=== PATIENT | female | born 1935 | race Caucasian/White ===

== ENCOUNTER → 2018-01-22 | Outpatient (CLI) | payer OTHER ==
[~2018-01-22] MED LIST: ACETAMINOPHEN325 M1 PO; ASPIRIN EC81 M1 PO; ASPIRIN PO; CALCIUM 600 +1 EAC7 PO; CALCIUM PO; CEFDINIR300 MG PO; CLONIDINE HCL0.2 M2 PO; CLONIDINE HCL0.3 M2 PO; COLACE100 MG PO; Calcium PO; DIOVAN40 MG PO; DUONEB 2.5-0.5 M3 ML; DUONEB 2.5-0.5 M3 ML INH; FISH OIL PO; Fish Oil PO; LEVAQUIN 500 M500 M2 PO; MUCINEX; MUCINEX600 MG PO; MULTI VITAMIN1 EACH PO; POTASSIUM20 OR; PREDNISONE 10 M10 M1; PREDNISONE 10 M10 M1 PO; PREDNISONE 20 M20 MG PO; PRILOSEC 20 MG20 MG PO; PROBIOTIC1 EAC1 PO; PROBIOTICS; RED YEAST RICE600 MG PO; SIMVASTATIN5 MG PO; SIMVASTATIN80 MG PO; SINGULAIR; SINGULAIR 10 MG10 M1 PO; SINGULAIR 10 MG10 MG PO; SYMBICORT160 MCG/4. INH; TYLENOL325 MG PO; VALSARTAN-HCTZ1 EACH PO; VENTOLIN HFA INH8 GM INH; VENTOLIN INH; VITAMIN B COMP1 EACH PO; VITAMIN D; VITAMIN D1000 UNI1 PO; VITAMIN D32000 UNIT PO; XANAX 0.25 MG0.25 MG PO; ZOFRAN ODT4 MG PO
== END ==
LOC: M.ULTRA 15:26
DX: G45.9 Transient cerebral ischemic attack, unspecified (principal)

== ENCOUNTER → 2018-02-09 | Outpatient (CLI) | payer OTHER | LOC: M.ULTRA 12:38 | DX: I73.9 Peripheral vascular disease, unspecified (principal); I70.90 Unspecified atherosclerosis; M79.605 Pain in left leg; M79.604 Pain in right leg ==

== ENCOUNTER 2018-06-28 16:09 | Inpatient (IN) | payer OTHER ==
[~2018-06-28] VITALS: Ht 160 cm; Wt 68.0 kg
[~2018-06-28 16:09] MED LIST changes: -CEFDINIR300 MG PO; -PREDNISONE 20 M20 MG PO; -RED YEAST RICE600 MG PO; -TYLENOL325 MG PO; -XANAX 0.25 MG0.25 MG PO
[2018-06-28 16:13] VITALS: BP 172/74; BP 238/89
[2018-06-28 16:34] LABS: ABSOLUTE LYMPHOCYTES 1.4 thou/uL (0.8-5.3); ABSOLUTE MONOCYTES 1.2 thou/uL (0.0-1.2); ABSOLUTE NEUTROPHILS 9.1 thou/uL (1.6-8.1); BASOPHILS 0.3 %; EOSINOPHILS 0.3 %; HEMATOCRIT 46.1 % (37.0-47.0); HEMOGLOBIN 15.6 gm/dL (12.0-15.0); LYMPHOCYTES 11.7 %; MCH 29.9 pg (26.0-34.0); MCHC 33.8 g/dL (28.0-37.0); MCV 88.4 fL (80.0-100.0); MONOCYTES 9.9 %; NUCLEATED RBCS 0 /100WBC; PLATELET COUNT* 178 thou/uL (150-400); POLYS 77.8 %; RBC 5.22 mil/uL (4.20-5.00); RDW-CV 13.6 % (10.5-14.5); WBC 11.7 thou/uL (4.0-11.0)
[2018-06-28 16:44] LABS: ANION GAP 2 mmol/L (7-16); BUN 15 mg/dL (7-18); CALCIUM 9.4 mg/dL (8.5-10.1); CHLORIDE 100 mmol/L (98-107); CO2 35 mmol/L (21-32); CREATININE 0.9 mg/dL (0.6-1.3); GLUCOSE 139 mg/dL (70-99); POTASSIUM 3.4 mmol/L (3.5-5.1); SODIUM 137 mmol/L (136-145)
[2018-06-28 16:55] LABS: ALBUMIN 3.5 g/dL (3.4-5.0); ALKALINE PHOSPHATASE 72 U/L (46-116); LIPASE 108 U/L (73-393); MAGNESIUM 1.5 mg/dL (1.8-2.4); NT-PRO BRAIN NAT PEPTIDE 115 pg/mL (<300); SGOT 31 U/L (15-37); SGPT 29 U/L (30-65); TOTAL BILIRUBIN 0.7 mg/dL (<0.1-1.0); TOTAL PROTEIN 7.2 g/dL (6.4-8.2); TROPONIN-I LEVEL <0.06 ng/mL (<0.06)
[2018-06-28] MEDS ORDERED: RED YEAST RICE600 MG PO (17:08)
[2018-06-28] MEDS ORDERED: XANAX 0.25 MG0.25 MG PO (17:08)
[2018-06-28 18:26] VITALS: BP 134/50
[2018-06-28 18:43] VITALS: BP 150/64
--- NOTE | 2018-06-28 18:56 | NUR ---
RECIEVED REPORT FROM ARVIN RN IN ER AROUND 1817 OF EXPECTED TRANSFER- DX: PNEUMONIA- PT ARRIVED TO ROOM 213 AT 1830- SBA TO BED- TIMBER APPRAISER PLACED INDICATED, NOTED TO BE TRACING SR WITH 1ST DEGREE- VS 98.5 20 150/64 93 95% ON 2L VIA NC- DYSPNEA NOTED ON EXERTION- PT SET WITH CALL LIGHT WITH IN REACH- DENIES ANY C/O PAIN/DISCOMFORT AT THIS TIME- REPORT GIVEN TO ON COMMING NURSE TO ASSUME CARE AND COMPLETE ADMISSION- ALL NEEDS MET AT THIS TIME-WCTM
[2018-06-28 20:30] VITALS: BP 120/48
[2018-06-29] VITALS: BP 136/66
[2018-06-29 05:45] VITALS: BP 168/68
[2018-06-29] MEDS ORDERED: TYLENOL325 MG PO (06:14)
--- NOTE | 2018-06-29 06:50 | NUR ---
Admission at 1830. She states that she's been having L breast and rib pain x 2 days and that it increased which and brought her the ED. By the time I did her assessment she stated the pain had decreased and that she did feel short of air. Her lungs were clear on upper lobes and very diminished as in hardly any air moving in lower lobes. She was admitted with pneumonia and is getting breathing treatments. Vitals have been stable and she's done well with O2 at 2L n/c. This am she did walk to the bathroom without O2 and that was not a good idea. She did get very short of air and have wheezing. I did turn down her IV fluids. Lungs do not sound fluid filled but they are wheezy and lower lobes have fine crackles. She was very anxious after getting to bed from bathroom. AM xanax given early at 0600 and now she is resting well in with O2 at 2L n/c. Home meds in chart awaiting approval from [facility]. She did sleep well.
[2018-06-29 09:00] VITALS: BP 140/64
[2018-06-29 11:30] VITALS: BP 133/59
--- NOTE | 2018-06-29 14:35 | EKG ---
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 06/29/18 1435 1616 1616 Randy Lyons MD, [facility] /EPI
--- NOTE | 2018-06-29 16:04 | 2DMMODE ---
[place] [address] 2 D/M-MODE ECHOCARDIOGRAM Name: WALI SOLORZANO Room: [address] IN [facility]#: [id number] Admission: 06/28/18 Attend Phys: Hossein Moctezuma Discharge: Date of : 39 Date of Service: 06/29/18 1604 Report #: [id number] THIS REPORT FOR: //name// APPROVED REPORT Study performed: 06/29/2018 14:39:10 EXAM: Comprehensive 2D, Doppler, and color-flow Echocardiogram Patient Location: In-Patient Room #: [facility] Status: routine BSA: 1.71 HR: 100 bpm BP: 133/59 mmHg Rhythm: NSR Other Information Study Quality: Good Indications Dyspnea pneumonia 2D Dimensions LVEF(%): 80.65 (>50%) IVSd: 8.50 (7-11mm) LVOT Diam: 19.76 (18-24mm) LVDd: 43.59 mm PWd: 8.89 (7-11mm) Ascending Ao: 27.99 (22-36mm) LVDs: 22.21 (25-40mm) Aortic Root: 28.64 mm Myers's LVEF: 80.65 % Volumes Left Atrial Volume (Systole) LA ESV Index: 22.70 mL/m2 Aortic Valve AoV Peak Dick.: 2.58 m/s AO Peak Gr.: 26.69 mmHg LVOT Max P.31 mmHg AO Mean Gr.: 14.30 mmHg LVOT Mean P.48 mmHg LVOT Max V: 1.53 m/s AO V2 VTI: 45.18 cm LVOT Mean V: 0.97 m/s OLIVER (VTI): 1.85 cm2 LVOT V1 VTI: 27.24 [place] [address] 2 D/M-MODE ECHOCARDIOGRAM Name: WALI SOLORZANO Room: [address] IN ..#: [id number] Admission: 06/28/18 Attend Phys: Hossein Moctezuma Discharge: Date of : 39 Date of Service: 06/29/18 1604 Report #: [id number] E/A Ratio: 0.73 MV Decel. Time: 176.12 ms MV E Max Dick.: 1.19 m/s MV PHT: 51.07 ms MVA (PHT): 4.31 cm2 TDI E/Lateral E': 11.90 E/Medial E': 9.92 Medial E' Dick.: 0.12 m/s Lateral E' Dcik.: 0.10 m/s Pulmonary Valve PV Peak Dick.: 1.27 m/s PV Peak Gr.: 6.46 mmHg Left Ventricle The left ventricle is normal size. There is normal LV segmental wall motion. There is normal left ventricular wall thickness. Left ventricular systolic function is normal. The left ventricular ejection fraction is within the normal range. LVEF is 65%. Grade I - abnormal relaxation pattern. Right Ventricle The right ventricle is normal size. The right ventricular systolic function is normal. Atria The left atrium size is normal. The right atrium size is normal. Aortic Valve Moderate aortic valve sclerosis. No aortic regurgitation is present. Mild aortic stenosis. Mitral Valve There is mitral annular calcification. There is no mitral valve regurgitation noted. No evidence of mitral valve stenosis. Tricuspid Valve The tricuspid valve is normal in structure. Trace tricuspid regurgitation. Unable to assess PA pressure. Pulmonic Valve The pulmonary valve is normal in structure. There is no pulmonic valvular regurgitation[place] [address] 2 D/M-MODE ECHOCARDIOGRAM Name: WALI SOLORZANO Room: [address] IN [facility]#: [id number] Admission: 06/28/18 Attend Phys: Hossein Moctezuma Discharge: Date of : 39 Date of Service: 06/29/18 1604 Report #: [id number] The aortic root is normal in size. IVC is normal in size and collapses with >50% inspiration Pericardium There is no pericardial effusion. <Conclusion> The left ventricle is normal size. There is normal left ventricular wall thickness. Left ventricular systolic function is normal. The left ventricular ejection fraction is within the normal range. LVEF is 65%. Grade I - abnormal relaxation pattern. The right ventricle is normal size. The left atrium size is normal. Moderate aortic valve sclerosis. No aortic regurgitation is present. Mild aortic stenosis. There is mitral annular calcification. There is no mitral valve regurgitation noted. No evidence of mitral valve stenosis. The tricuspid valve is normal in structure. IVC is normal in size and collapses with >50% inspiration There is no pericardial effusion. There is normal LV segmental wall motion. <ELECTRONICALLY SIGNED> By: Randy Lyons MD, [facility]ACC 06/29/18 1604 1604 1604 Randy Lyons MD, [facility]ACC /INF
--- NOTE | 2018-06-29 16:32 | NUR ---
PATIENT NPO THIS AM FOR CTA CHEST THIS AFTERNOON, NEGATIVE FOR PE. US STEPHEN LOWER EXTREMITIES NEGATIVE FOR DVT. IV SL THIS SHIFT AFTER SCHED ABX. PULM CONS, SWABS OBTAINED ORDERED AND AWAITING SPUTUM FOR CULTURE. PATIENT UP AND SHOWERED THIS EVENING. FRIENDS AT BEDSIDE ALL MORNING. POTASSIUM AND MAG REPLACED PER PROTOCOL, REDRAW THIS EVENING AWAITING RESULTS.
[2018-06-29 16:35] VITALS: BP 178/82
[2018-06-29 16:47] LABS: MAGNESIUM 1.7 mg/dL (1.8-2.4); POTASSIUM 3.6 mmol/L (3.5-5.1)
--- NOTE | 2018-06-29 17:01 | NUR ---
PT.WAS ALERT AND ORIENTED. STATED SHE LIVES ALONE BUT HER FAMILY IS SUPPORTIVE. SHE HAS O2 THROUGH [facility] BUT ONLY USUALLY USES AT NIGHT. SHE IS NORMALLY INDEPENDENT AT HOME. 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 NO HX OF DME OR SNF. SAID SHE HAS NO TROUBLE PAYING FOR HER MEDICATIONS. CM TO BE AVAILABLE FOR ANY DISCHARGE NEEDS.
[2018-06-29 20:00] VITALS: BP 130/62
[2018-06-30 00:48] VITALS: BP 151/60
[2018-06-30 04:39] LABS: HEMATOCRIT 40.6 % (37.0-47.0); HEMOGLOBIN 13.8 gm/dL (12.0-15.0); MCV 88.3 fL (80.0-100.0); MPV 9.6 fl. (7.2-11.1); NUCLEATED RBCS 0 /100WBC; PLATELET COUNT* 156 thou/uL (150-400); RDW-CV 13.6 % (10.5-14.5); WBC 9.2 thou/uL (4.0-11.0)
[2018-06-30 04:52] VITALS: BP 139/59
[2018-06-30 05:42] LABS: ALBUMIN 2.9 g/dL (3.4-5.0); CALCIUM 8.8 mg/dL (8.5-10.1); CREATININE 0.8 mg/dL (0.6-1.3); MAGNESIUM 2.2 mg/dL (1.8-2.4); POTASSIUM 3.8 mmol/L (3.5-5.1); TOTAL BILIRUBIN 0.2 mg/dL (<0.1-1.0); TOTAL PROTEIN 5.9 g/dL (6.4-8.2)
[2018-06-30 06:25] LABS: ABSOLUTE LYMPHOCYTES 0.3 thou/uL (0.8-5.3); ABSOLUTE MONOCYTES 0.1 thou/uL (0.0-1.2); ABSOLUTE NEUTROPHILS 8.8 thou/uL (1.6-8.1); METAMYELOCYTES 1 %; PLATELET ESTIMATE ADEQUATE
[2018-06-30 09:11] VITALS: BP 133/61
[2018-06-30 16:08] VITALS: BP 133/64
--- NOTE | 2018-06-30 17:53 | NUR ---
PT IS ADMITTED WITH PNEUMONIA. PT WAS 91% SPO2 THIS AM, O2 INCREASED TO 3 LITERS BY NC. PT SPO2 INCREASED TO 95%. PT IS SCHEDULED FOR US OF ABD DUE TO CT SCAN SHOWING NODULAR GALLBLADDER. PT WILL BE NPO AFTER MIDNIGHT. CALL LIGHT IN REACH AND BED ALARM ON. WILL CONTINUE TO MONITOR.
--- NOTE | 2018-06-30 18:05 | NUR ---
NURSING DOCUMENTATION BY HANH Venegas RN REVIEWED
[2018-06-30 20:00] VITALS: BP 161/77
[2018-06-30 23:37] VITALS: BP 142/78
[2018-07-01 03:47] VITALS: BP 145/49
--- NOTE | 2018-07-01 04:46 | NUR ---
PATIENT ASSISTED TO RECLINER AT BEGINNING OF SHIFT. PT TEARFUL AND APPEARED TO BE DEPRESSED(?). ASKED PT IF EVERYTHING WAS OK. PT DENIES THAT ANYTHING WAS WRONG. PT LATER CALLED FOR ASSISTANCE BACK TO BED. PT ON O2 @ 3 LITERS PER NASAL CANNULA. PT ABLE TO AMBULATE FROM CHAIR TO BATHROOM AND BACK TO BED WITH ONLY STANDBY. PT'S BLOOD PRESSURE 161/77 WHEN B/P MEDS WERE GIVEN. RECHECKED LATER IN THE SHIFT AND FOUND TO BE WNL. PT CONTINUES TO BE TEARFUL AND SAD THIS MORNING BUT DENIES ANYTHING IS WRONG. PT HAS BEEN NPO SINCE MIDNIGHT FOR ABDOMINAL U/S. FREQUENTLY USED ITEMS AND CALL LIGHT WITHIN REACH. SIDERAILS UPX2. PT REMAINS IN DROPLET ISOLATION. WILL CONTINUE TO MONITOR.
[2018-07-01 05:07] LABS: HEMATOCRIT 39.6 % (37.0-47.0); MCH 29.3 pg (26.0-34.0); MCV 88.8 fL (80.0-100.0); RBC 4.45 mil/uL (4.20-5.00); RDW-CV 13.6 % (10.5-14.5); WBC 13.9 thou/uL (4.0-11.0)
[2018-07-01 05:10] LABS: CALCIUM 8.5 mg/dL (8.5-10.1); CREATININE 0.8 mg/dL (0.6-1.3); MAGNESIUM 2.1 mg/dL (1.8-2.4); POTASSIUM 4.6 mmol/L (3.5-5.1)
[2018-07-01 08:27] VITALS: BP 161/68
[2018-07-01 11:46] VITALS: BP 176/78
[2018-07-01 15:41] VITALS: BP 162/78
--- NOTE | 2018-07-01 16:44 | NUR ---
PT IS ALERT AND ORIENTED. PT HAD C/O HEADAHCE-ACETAMINOPHEN ORDERED AND GIVEN. PT IS ON 3 LITERS BY NASAL CANNULA. PT IS COUGHING WELL WITH SPUTUM-NOT OBSERVED SPUTUM. PT HAD CXR COMPLETED-SHOWED INCREASE INB LOWER LOBE INFILTRATES. CXR ORDERED FOR 07/02/18. US COMPLETED OF GALLBLADDER-NOT WELL VISUALIZED. PT HAD ABX INFUSED ORDERED. PT IV CAME OUT, NEW IV IN RIGHT FOREARM. SOLUMEDROL GIVEN ORDERED. CALL LIGHT IN REACH. BED ALARM ON. WILL CONTINUE TO MONITOR.
[2018-07-02] VITALS (7 sets, daily range): BP systolic 141–200; BP diastolic 45–88
[2018-07-02 04:05] LABS: HEMATOCRIT 41.7 % (37.0-47.0); HEMOGLOBIN 13.7 gm/dL (12.0-15.0); MCH 29.4 pg (26.0-34.0); MCHC 32.9 g/dL (28.0-37.0); MCV 89.5 fL (80.0-100.0); MPV 9.1 fl. (7.2-11.1); RBC 4.66 mil/uL (4.20-5.00); RDW-CV 13.6 % (10.5-14.5); WBC 10.8 thou/uL (4.0-11.0)
[2018-07-02 05:01] LABS: CALCIUM 8.5 mg/dL (8.5-10.1); CREATININE 0.8 mg/dL (0.6-1.3); MAGNESIUM 2.1 mg/dL (1.8-2.4); POTASSIUM 4.5 mmol/L (3.5-5.1)
--- NOTE | 2018-07-02 17:45 | NUR ---
PATIENT ALERT AND ORIENTED X 4. VITAL SIGNS STABLE ON 2L O2 NASAL CANULA. UP WITH ASSISTANCE TO THE BATHROOM. IV PATENT AND SALINE LOCKED. DENIES PAIN AND NAUSEA. BLOOD PRESSURE HAS BEEN HIGH THIS SHIFT. PATIENT STATES THAT SHE TAKES A DIFFERENT BLOOD PRESSURE MED AT HOME AND WAS UPSET. HOME MED IS NOT AVAILABLE HERE. [facility] ORDERED AND SUCCESSFULLY BROUGHT PATIENT'S PRESSURE BACK DOWN. PRN HYDRALAZINE ALSO AVAILABLE, IF NEEDED. HOURLY ROUNDS MAINTAINED THROUGHOUT THE SHIFT. CALL LIGHT WITHIN REACH. NURSING WILL CONTINUE TO MONITOR.
[2018-07-03 02:05] LABS: ADENOVIRUS Negative (Negative); INFLUENZA A Negative (Negative); INFLUENZA B Negative (Negative); METAPNEUMOVIRUS Negative (Negative); PARAINFLUENZA 1 Negative (Negative); PARAINFLUENZA 2 Negative (Negative); PARAINFLUENZA 3 Negative (Negative); RHINOVIRUS Negative (Negative); RSV A Negative (Negative); RSV B Negative (Negative)
--- NOTE | 2018-07-03 05:07 | NUR ---
ASSESSMENT COMPLETE. PT SLEPT MOST OF THE NIGHT. PT DENIES PAIN AND N/V. PT GIVEN PRN BP MEDICATION ONCE FOR SBP >170. PT IS ON 2L PER NC, WHICH SHE HAS AT HOME. PT GIVEN TYLENOL AT HS FOR HEADACHE. PT HAS IV, SALINE LOCKED. PT IS UP AD J LUIS WITH STEADY GAIT. SEE ASSESSMENT AND VITALS FOR OTHER DETAILS. CALL LIGHT WITHIN REACH, WILL CONTINUE PLAN OF CARE
[2018-07-03 06:20] VITALS: BP 208/95
[2018-07-03 07:05] VITALS: BP 191/104
[2018-07-03 08:45] VITALS: BP 175/79
[2018-07-03 11:06] VITALS: BP 175/79
[2018-07-03] MEDS ORDERED: PREDNISONE 20 M20 MG PO (11:19)
[2018-07-03] MEDS ORDERED: CEFDINIR300 MG PO (11:19)
--- NOTE | 2018-07-03 12:09 | NUR ---
PATIENT DISCHARGED TO HOME AT THIS TIME WITH FRIENDS. DR. ZEPEDA AWARE OF HIGH BP, PATIENT NOTIFIED TO CONTINUE HOME MEDS FOR BP AT HOME. IV DC'D. PATIENT AMBULATED IN [place] WITH DR. ZEPEDA THIS AM, STEADY GAIT NOTED. VERBALIZES UNDERSTANDING OF PAPEWORK AND SCRIPT. PATIENT TAKEN OUT VIA WHEELCHAIR WITH ALL BELONGINGS.
--- NOTE | 2018-07-06 09:21 | CON ---
[address] [address] CONSULTATION Name: WALI SOLORZANO Room: [address] IN .R.#: [id number] Admission: 06/28/18 Attend Phys: Jose Raul Ellis Discharge: 07/03/18 Date of : 39 Report #: [id number] THIS REPORT FOR: //name// CC: Myla Moctezuma DATE OF SERVICE: 06/29/2018 REQUESTING PHYSICIAN: Dr. Moctezuma. HISTORY OF PRESENT ILLNESS: An 83-year-old female with longstanding history of COPD, is on oxygen while asleep, 2 liters long-term, is not on oxygen during the day, is not on long-term prednisone. FEV1 on an old PFT from 2013 is 0.8 liters. The patient is now here with a complaint of high-grade fever at 38.4 upon admission, recorded above 101 degrees Fahrenheit at home by patient. Earlier she says that she has had fever for the last 2-3 days. She also complains of chest pain. She describes it as being moderate to severe on the left side of her chest associated with respiration and coughing with no local tenderness present. She also reports that she has a cough, not much sputum production though. She also reports increasing shortness of breath, although this is not a major complaint for her. She always has a clear nasal discharge, is somewhat worse now. No sore throat. No swelling of lower extremities or calf pain. The patient sleeps on her back. She says she sleeps well at night; however, has significant sleepiness during the day and does doze off unintentionally at times during the day. There is no heartburn. There is no nausea, vomiting, diarrhea or constipation. The patient answered to the negative for 12 questions for review of systems except as mentioned above. PAST MEDICAL HISTORY: COPD, on oxygen 2 liters while asleep long-term. There is a clinical history, which is suspicious of obstructive sleep apnea; however, I do not see this diagnosis previously on her record. Her FEV1 from 2013 was 0.8 liters. She is not on long-term prednisone. I do not have a measure of her left ventricular ejection fraction available at this time. Hypertension. Status post hysterectomy. ALLERGIES: SULFONAMIDE ANTIBIOTICS, LISINOPRIL, AND LOSARTAN ARE MENTIONED ALLERGIES. SOCIAL HISTORY: The patient reports having had an extensive history of smoking in the past for several decades, more than a pack a day. She says she has now discontinued, however, many years ago and no known history of heavy alcohol use [place] [address] CONSULTATION Name: WALI SOLORZANO Room: [address] IN M.R.#: [id number] Admission: 06/28/18 Attend Phys: Jose Raul Ellis Discharge: 07/03/18 Date of : 39 Report #: [id number] CURRENT MEDICATIONS: List in [facility] reviewed. HOME MEDICATIONS: List also in [facility] reviewed. FAMILY HISTORY: Brother had colon cancer. There is also leukemia in the family. PHYSICAL EXAMINATION: GENERAL: She is alert, awake and oriented, does not appear to be in any distress at this time. VITAL SIGNS: Has a pulse of 85 and a blood pressure of 140/64. She is on 2 liters nasal cannula. She is saturating in the mid 90s, last recorded at 95%. Respiratory rate is mildly elevated at 20. She is afebrile now with a temperature of 36.7; however, overnight she did have a fever up to 38.4. HEENT: Head is normocephalic and atraumatic. Pupils are equal and reactive. There is no throat erythema. She has a narrow airway, around Mallampati 3. NECK: Does not show raised JVP, asymmetry, mass or lymph nodes. CHEST: Symmetrical expansion on inspection and palpation. On auscultation, however, breath sounds are markedly decreased, expirations are prolonged; however, do not hear any added sounds. There is no tenderness towards the left side of chest at the site of stated pain. There is also no skin changes noted in this region. HEART: Regular, no murmur. ABDOMEN: Soft and nontender. EXTREMITIES: Lower extremities show no edema, no calf tenderness. There are varicose veins present bilaterally. SKIN: However, dry and intact. NEUROLOGICAL: Moves all extremities bilaterally equally and spontaneously with no focal deficit identified. LABORATORY DATA: The patient's chest x-ray is reviewed and it does show a small infiltrate in the left lower lobe. The patient also has a small radiopaque density in the right mid zone. This was also seen previously in the chest x-ray performed in 2016. The infiltrate in the left lower lobe, however, appears to be new. The patient's CBC as well as chemistries is in [facility] and these are reviewed. Hypokalemia and hypomagnesemia are noted. Creatinine is normal. ASSESSMENT AND PLAN: 1. Acute respiratory insufficiency. The patient has chronic obstructive pulmonary disease exacerbation with pneumonia. She may also have a viral respiratory tract infection. This appears to be the etiology of the patient's acute respiratory insufficiency. 2. Left lower lobe infiltrate. This is consistent with pneumonia. The patient may also have a viral respiratory tract infection. We will continue with Zithromax as well as ceftriaxone. I increased the ceftriaxone dose. A CT chest is already ordered and is pending at this time. More cultures and serologies [address] [address] CONSULTATION Name: WALI SOLORZANO Room: [address]#: [id number] Admission: 06/28/18 Attend Phys: Jose Raul Ellis Discharge: 07/03/18 Date of : 39 Report #: [id number] are also ordered. 3. Chronic obstructive pulmonary disease exacerbation. The patient has markedly decreased breath sounds and expirations are prolonged. She is already on Solu-Medrol as well as nebulized bronchodilators. Again, I agree with the same. 4. Pleuritic chest pain. This may again be secondary to her pneumonia; however, I do agree that the infiltrate is small and therefore evaluation for thromboembolic phenomenon does also appear to be indicated. Dr. Moctezuma already ordered a CTA of chest. I agree. We will also do venous Dopplers and a 2D echo. 5. Clostridium difficile prophylaxis. The patient is on Lactinex. 6. Deep venous thrombosis prophylaxis, on Lovenox. 7. Hypokalemia and hypomagnesemia, being replaced. I recommend replacing magnesium intravenously due to better absorption and also less risk of gastrointestinal side effects. Thanks for this consultation. <ELECTRONICALLY SIGNED> By: Clem Nunez MD 07/06/18 0921 1125 [id number] Watts MD /nt
== END 2018-07-03 12:11 | disposition home or self-care (01) | DRG 871 ==
LOC: M.ERS 16:09 → M.2W 17:39 → M.TBA-ER 17:39 → M.ORTHSURG 17:39 → M.2W 18:32 → M.ORTHSURG 06-29 07:40
PROVIDERS: Emergency Medicine Emergency Medical Services; Family Medicine; Internal Medicine Critical Care Medicine; ADMIT Internal Medicine
DX: A41.9 Sepsis, unspecified organism (principal); J15.9 Unspecified bacterial pneumonia; J96.21 Acute and chronic respiratory failure with hypoxia; J44.0 Chronic obstructive pulmonary disease with (acute) lower respiratory infection; J44.1 Chronic obstructive pulmonary disease with (acute) exacerbation; J98.11 Atelectasis; J84.9 Interstitial pulmonary disease, unspecified; I10 Essential (primary) hypertension; E87.6 Hypokalemia; I25.10 Atherosclerotic heart disease of native coronary artery without angina pectoris; E83.42 Hypomagnesemia; I73.9 Peripheral vascular disease, unspecified; Z87.891 Personal history of nicotine dependence; Z90.710 Acquired absence of both cervix and uterus; Z79.82 Long term (current) use of aspirin; Z79.899 Other long term (current) drug therapy; Z88.2 Allergy status to sulfonamides; Z88.8 Allergy status to other drugs, medicaments and biological substances; Z80.0 Family history of malignant neoplasm of digestive organs; Z80.6 Family history of leukemia

== ENCOUNTER 2018-07-04 08:08 | Observation (INO) | payer OTHER ==
[~2018-07-04] VITALS: Ht 160 cm; Wt 67.1 kg
[~2018-07-04 08:08] MED LIST changes: +CEFDINIR300 MG PO; +PREDNISONE 20 M20 MG PO; +RED YEAST RICE600 MG PO; +TYLENOL325 MG PO; +XANAX 0.25 MG0.25 MG PO
[2018-07-04 08:16] VITALS: BP 240/102
[2018-07-04 09:07] LABS: CALCIUM 8.7 mg/dL (8.5-10.1); CREATININE 0.8 mg/dL (0.6-1.3); POTASSIUM 3.5 mmol/L (3.5-5.1)
[2018-07-04 09:12] LABS: ALBUMIN 3.1 g/dL (3.4-5.0); HEMATOCRIT 46.5 % (37.0-47.0); HEMOGLOBIN 15.6 gm/dL (12.0-15.0); MCH 29.4 pg (26.0-34.0); MCHC 33.6 g/dL (28.0-37.0); MCV 87.7 fL (80.0-100.0); MPV 8.7 fl. (7.2-11.1); NUCLEATED RBCS 0 /100WBC; PLATELET COUNT* 207 thou/uL (150-400); RDW-CV 13.4 % (10.5-14.5); TOTAL BILIRUBIN 0.4 mg/dL (<0.1-1.0); TOTAL PROTEIN 6.3 g/dL (6.4-8.2); WBC 9.1 thou/uL (4.0-11.0)
[2018-07-04 10:16] LABS: ABSOLUTE EOSINOPHILS 0.2 thou/uL (0.0-0.7); ABSOLUTE LYMPHOCYTES 2.3 thou/uL (0.8-5.3); ABSOLUTE MONOCYTES 0.6 thou/uL (0.0-1.2); GIANT PLATELETS RARE; PLATELET ESTIMATE ADEQUATE
[2018-07-04 10:17] LABS: LARGE PLATELETS OCCASIONAL; MACROCYTES Occasional; POLYCHROMASIA Occasional
[2018-07-04 10:50] LABS: APTT 24.6 Seconds (25.0-31.3); PROTIME 10.5 Seconds (9.20-11.50)
[2018-07-04 10:54] LABS: NT-PRO BRAIN NAT PEPTIDE 560 pg/mL (<300); TROPONIN-I LEVEL <0.06 ng/mL (<0.06)
[2018-07-04 11:21] LABS: HCO3 31.2 mmol/L (22.0-26.0); PCO2 46.2 mmHg (35.0-45.0); PO2 73.8 mmHg (75.0-100.0); pH 7.447 (7.340-7.450)
[2018-07-04 12:44] LABS: URINE BILIRUBIN NEGATIVE (Negative); URINE BLOOD NEGATIVE (Negative); URINE CLARITY CLEAR; URINE COLOR YELLOW; URINE GLUCOSE-RANDOM NEGATIVE (Negative); URINE KETONES NEGATIVE (Negative); URINE LEUKOCYTES-REFLEX NEGATIVE (Negative); URINE NITRITE-REFLEX NEGATIVE (Negative); URINE PROTEIN NEGATIVE (Negative); URINE SPECIFIC GRAVITY <= 1.005 (1.005-1.030); URINE UROBILINOGEN 0.2 E.U./dl (0.2-1.0)
--- NOTE | 2018-07-04 14:44 | NUR ---
TURKEY SANDWICH AND APPLESAUCE PROVIDED FOR LUNCH
[2018-07-04 16:23] VITALS: BP 151/63
[2018-07-04 17:00] VITALS: BP 165/87
--- NOTE | 2018-07-04 19:04 | NUR ---
PT ARRIVED TO ROOM 200 AT APPROX 1700 FROM ER. ADMISSION AND ASSESMENT DONE CHARTED. PT A/O X4, C/O SOME GARCIA PAIN, DOES NOT WANT ANYTHING FOR IT AT THIS TIME. PT ON 2L O2 SATS 88-90% ON RA. PT UP AD J LUIS, VERBALIZES UNDERSTANDING TO ASK FOR ASSISTANCE IF NEEDED. WILL CONTINUE TO MONITOR.
[2018-07-04 20:00] VITALS: BP 131/82
[2018-07-05] VITALS: BP 139/70
[2018-07-05 04:00] VITALS: BP 159/52
--- NOTE | 2018-07-05 04:52 | NUR ---
Assumed care of patient at 1930. Full assessment performed and documented; hourly rounding completed for patient safety. Patient slept well throughout the night. No c/o pain. SR noted on telemetry. O2 saturation 94% on 2L NC. Patient A&O x4; up ad nick in room. Left FA IVL intact and flushed. VSS; BPs much improved to 130s/70s. Fall precautions in place, call light within reach. Will continue to monitor.
[2018-07-05 08:00] VITALS: BP 132/67
--- NOTE | 2018-07-05 08:56 | NUR ---
ASSUMED PT CARE AT 0730, FULL ASSESMENT DONE CHARTED. PT A/O X4, DENIES PAIN, REPORTS AN EPISODE OF JAW PAIN IN THE NIGHT THAT QUICKLY WENT AWAY. PTS BP IN NORMAL RANGE, ALL OTHER VSS, SR ON THE MONITOR. O2 SAT 97% ON 2L O2, LUNGS DIMINISHED. PT USES CALL LIGHT APPROPRIALTY, UP AD J LUIS, WILL CONTINUE WITH PLAN OF CARE.
[2018-07-05 10:43] VITALS: BP 132/67
--- NOTE | 2018-07-05 16:15 | EKG ---
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1935 Requested By: Jayashree Rivas Order Number: [id number] MD: Randy Lyons Measurements Intervals [place] Rate: 97 P: 54 NC: 168 QRS: -47 QRSD: 82 T: 58 QT: 318 QTc: 404 Interpretive Statements Sinus rhythm Probable left atrial enlargement LAD, consider left anterior fascicular block Compared to ECG 06/28/2018 16:16:09 Sinus tachycardia no longer present ST (T wave) deviation no longer present Electronically Signed On 07-05-2018 16:15:05 CDT by Randy Lyons [email or web address] <ELECTRONICALLY SIGNED> By: Randy Lyons MD, [facility] 07/05/18 1615 2 2 Randy Lyons MD, [facility] /EPI
== END 2018-07-05 11:07 | disposition home or self-care (01) ==
LOC: M.ERS 08:08 → M.TBA-ER 11:43 → M.2W 11:43
PROVIDERS: Personal Emergency Response Attendant; ADMIT Internal Medicine
DX: I16.0 Hypertensive urgency (principal); J96.21 Acute and chronic respiratory failure with hypoxia; I11.0 Hypertensive heart disease with heart failure; I50.31 Acute diastolic (congestive) heart failure; J18.9 Pneumonia, unspecified organism; J44.1 Chronic obstructive pulmonary disease with (acute) exacerbation; I73.9 Peripheral vascular disease, unspecified; R06.02 Shortness of breath; Z90.710 Acquired absence of both cervix and uterus

== ENCOUNTER → 2018-07-27 | Outpatient (CLI) | payer OTHER | LOC: M.ULTRA 09:42 | DX: Z12.31 Encounter for screening mammogram for malignant neoplasm of breast (principal); I63.9 Cerebral infarction, unspecified; I65.23 Occlusion and stenosis of bilateral carotid arteries; I10 Essential (primary) hypertension; J44.9 Chronic obstructive pulmonary disease, unspecified ==

== ENCOUNTER → 2019-08-12 | Outpatient (CLI) | payer OTHER | LOC: M.RAD 08-09 10:15 | DX: Z12.31 Encounter for screening mammogram for malignant neoplasm of breast (principal) ==

== ENCOUNTER → 2020-10-02 | Outpatient (CLI) | payer OTHER | LOC: M.RAD 11:00 | PROVIDERS: ATTEND Family Medicine | DX: Z12.31 Encounter for screening mammogram for malignant neoplasm of breast (principal) ==

== ENCOUNTER 2020-12-28 18:09 | Emergency (ER) | payer OTHER ==
[~2020-12-28] VITALS: Ht 160 cm; Wt 52.2 kg
[2020-12-28] MEDS ORDERED: CLONIDINE HCL0.3 M3 PO (18:37)
[2020-12-28] MEDS ORDERED: MICARDIS40 MG PO (18:38)
[2020-12-28] MEDS ORDERED: HYDROCHLOROTH12.5 M1 PO (18:38)
[2020-12-28 19:14] LABS: URINE BILIRUBIN NEGATIVE (Negative); URINE BLOOD NEGATIVE (Negative); URINE CLARITY CLEAR; URINE COLOR YELLOW; URINE GLUCOSE-RANDOM NEGATIVE (Negative); URINE KETONES NEGATIVE (Negative); URINE LEUKOCYTES-REFLEX NEGATIVE (Negative); URINE NITRITE-REFLEX NEGATIVE (Negative); URINE PROTEIN NEGATIVE (Negative); URINE UROBILINOGEN 0.2 E.U./dl (0.2-1.0)
[2020-12-28 19:20] LABS: ABSOLUTE EOSINOPHILS 0.2 thou/uL (0.0-0.7); ABSOLUTE LYMPHOCYTES 1.2 thou/uL (0.8-5.3); ABSOLUTE MONOCYTES 0.7 thou/uL (0.0-1.2); ABSOLUTE NEUTROPHILS 6.3 thou/uL (1.6-8.1); BASOPHILS 0.6 %; EOSINOPHILS 2.3 %; HEMATOCRIT 44.9 % (37.0-47.0); HEMOGLOBIN 14.9 gm/dL (12.0-15.0); LYMPHOCYTES 14.6 %; MCH 29.1 pg (26.0-34.0); MCHC 33.1 g/dL (28.0-37.0); MCV 87.8 fL (80.0-100.0); MPV 9.1 fl. (7.2-11.1); NUCLEATED RBCS 0 /100WBC; PLATELET COUNT* 179 thou/uL (150-400); POLYS 74.5 %; RBC 5.12 mil/uL (4.20-5.00); RDW-CV 13.8 % (10.5-14.5); WBC 8.4 thou/uL (4.0-11.0)
[2020-12-28 19:24] LABS: CALCIUM 10.6 mg/dL (8.5-10.1); POTASSIUM 3.4 mmol/L (3.5-5.1)
[2020-12-28 19:29] LABS: ALBUMIN 3.5 g/dL (3.4-5.0); TOTAL BILIRUBIN 0.3 mg/dL (<0.1-1.0); TOTAL PROTEIN 7.1 g/dL (6.4-8.2)
[2020-12-28 21:02] VITALS: BP 162/65
--- NOTE | 2020-12-29 12:46 | EKG ---
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 : 1935 Requested By: Brianna Brown Order Number: [id number] MD: David Brizuela Measurements Intervals [place] Rate: 87 P: 15 MA: 191 QRS: -61 QRSD: 96 T: 58 QT: 369 QTc: 444 Interpretive Statements Sinus rhythm Left anterior fascicular block Abnormal R-wave progression, late transition Compared to ECG 07/04/2018 08:23:47 no change Electronically Signed On 12-29-2020 12:46:05 ENGINEER by David Brizuela [email or web address] <ELECTRONICALLY SIGNED> By: David Brizuela MD, FAC 12/29/20 1246 1846 1846 David Brizuela MD, [facility] /EPI
== END 2020-12-28 21:03 | disposition home or self-care (01) ==
LOC: M.ERS 18:09
PROVIDERS: Nurse Practitioner Family
DX: I10 Essential (primary) hypertension (principal); J44.9 Chronic obstructive pulmonary disease, unspecified; Z88.2 Allergy status to sulfonamides; Z88.8 Allergy status to other drugs, medicaments and biological substances; Z90.710 Acquired absence of both cervix and uterus

== ENCOUNTER 2020-12-28 22:44 | Inpatient (IN) | payer OTHER ==
[~2020-12-28] VITALS: Ht 160 cm; Wt 68.0 kg
[~2020-12-28 22:44] MED LIST changes: +CLONIDINE HCL0.3 M3 PO; +HYDROCHLOROTH12.5 M1 PO; +MICARDIS40 MG PO
[2020-12-28 22:52] VITALS: BP 230/96
[2020-12-29 01:07] LABS: ABSOLUTE EOSINOPHILS 0.2 thou/uL (0.0-0.7); ABSOLUTE LYMPHOCYTES 1.3 thou/uL (0.8-5.3); ABSOLUTE MONOCYTES 0.7 thou/uL (0.0-1.2); ABSOLUTE NEUTROPHILS 6.5 thou/uL (1.6-8.1); BASOPHILS 0.4 %; HEMATOCRIT 40.4 % (37.0-47.0); HEMOGLOBIN 13.5 gm/dL (12.0-15.0); LYMPHOCYTES 14.8 %; MCH 29.2 pg (26.0-34.0); MCHC 33.5 g/dL (28.0-37.0); MCV 87.2 fL (80.0-100.0); MONOCYTES 8.3 %; MPV 8.7 fl. (7.2-11.1); NUCLEATED RBCS 0 /100WBC; PLATELET COUNT* 156 thou/uL (150-400); POLYS 74.5 %; RBC 4.63 mil/uL (4.20-5.00); RDW-CV 13.7 % (10.5-14.5); WBC 8.8 thou/uL (4.0-11.0)
[2020-12-29 01:12] LABS: CALCIUM 10.6 mg/dL (8.5-10.1); CREATININE 0.9 mg/dL (0.6-1.3); POTASSIUM 3.6 mmol/L (3.5-5.1)
[2020-12-29 04:24] VITALS: BP 170/53
[2020-12-29 07:44] VITALS: BP 168/71
[2020-12-29 08:30] VITALS: BP 173/80
[2020-12-29 12:00] VITALS: BP 168/73
--- NOTE | 2020-12-29 12:21 | 2DMMODE ---
[place] [address] 2 D/M-MODE ECHOCARDIOGRAM Name: WALI SOLORZANO Room: [address] Kim#: [id number] Admission: 12/29/20 Attend Phys: Lazarus Laird, Discharge: Date of : 39 Date of Service: 12/29/20 1221 Report #: [id number] THIS REPORT FOR: cc: Myla Estrella Linda J. DO Liston, Michael J. MD [facility] ~ APPROVED REPORT Study performed: 12/29/2020 10:01:47 EXAM: Comprehensive 2D, Doppler, and color-flow Echocardiogram Patient Location: In-Patient Room #: [facility] Status: routine BSA: 1.71 HR: 76 bpm BP: 173/80 mmHg Rhythm: NSR Other Information Study Quality: Good Indications Hypertension/HDD 2D Dimensions IVSd: 8.20 (7-11mm) LVOT Diam: 19.98 (18-24mm) LVDd: 43.64 mm PWd: 8.48 (7-11mm) Ascending Ao: 27.92 (22-36mm) LVDs: 20.04 (25-40mm) Aortic Root: 28.27 mm Volumes Left Atrial Volume (Systole) LA ESV Index: 24.90 mL/m2 Aortic Valve AoV Peak Dick.: 2.35 m/s AO Peak Gr.: 22.14 mmHg LVOT Max P.94 mmHg AO Mean Gr.: 11.45 mmHg LVOT Mean P.16 mmHg LVOT Max V: 1.32 m/s AO V2 VTI: 43.03 cm LVOT Mean V: 0.80 m/s OLIVER (VTI): 1.68 cm2 LVOT V1 VTI: 23.02 [place] [address] 2 D/M-MODE ECHOCARDIOGRAM Name: WALI SOLORZANO TRACYRAFAL Room: [address] MCarroll#: [id number] Admission: 12/29/20 Attend Phys: Lazarus Laird, Discharge: Date of : 39 Date of Service: 12/29/20 1221 Report #: [id number] Mitral Valve MV Mean Gr.: 3.86 mmHg E/A Ratio: 0.71 MV Decel. Time: 354.98 ms MV E Max Dick.: 1.09 m/s MV PHT: 102.94 ms MVA (PHT): 2.14 cm2 TDI E/Lateral E': 18.17 E/Medial E': 18.17 Medial E' Dick.: 0.06 m/s Lateral E' Dick.: 0.06 m/s Pulmonary Valve PV Peak Dick.: 0.96 m/s PV Peak Gr.: 3.68 mmHg Tricuspid Valve RAP Estimate: 5.00 mmHg TR Peak Gr.: 17.68 mmHg RVSP: 22.00 mmHg PA Pressure: 22.00 mmHg Left Ventricle The left ventricle is normal size. There is normal LV segmental wall motion. There is normal left ventricular wall thickness. Left ventricular systolic function is normal. LVEF is 70%. Grade I - abnormal relaxation pattern. Right Ventricle The right ventricle is normal size. The right ventricular systolic function is normal. Atria The left atrium size is normal. The right atrium size is normal. Aortic Valve Mild aortic valve sclerosis. No aortic regurgitation is present. Mild aortic stenosis. Mitral Valve There is mitral annular calcification. There is no mitral valve regurgitation noted. Mild to moderate mitral stenosis. Tricuspid Valve The tricuspid valve is normal in structure. Trace tricuspid regurgitation. [place] [address] 2 D/M-MODE ECHOCARDIOGRAM Name: WALI SOLORZANO Room: [address] M..#: [id number] Admission: 12/29/20 Attend Phys: Lazarus Laird, Discharge: Date of : 39 Date of Service: 12/29/20 1221 Report #: [id number] Pulmonic Valve The pulmonary valve is normal in structure. There is no pulmonic valvular regurgitation. Great Vessels The aortic root is normal in size. IVC is normal in size and collapses >50% with inspiration. Pericardium There is no pericardial effusion. <Conclusion> The left ventricle is normal size. There is normal left ventricular wall thickness. Left ventricular systolic function is normal. LVEF is 70%. Grade I - abnormal relaxation pattern. Mild aortic valve sclerosis. Mild aortic stenosis. Trace tricuspid regurgitation. No pulmonary hypertension. IVC is normal in size and collapses >50% with inspiration. <ELECTRONICALLY SIGNED> By: Paul Shaw MD, FACC 12/29/20 1221 1221 122 Paul Shaw MD, FACC /INF
[2020-12-29 15:50] VITALS: BP 198/68
[2020-12-29 19:30] VITALS: BP 193/84
[2020-12-30] VITALS: BP 146/78
[2020-12-30 05:09] LABS: ANION GAP 2 mmol/L (7-16); BUN 18 mg/dL (7-18); CALCIUM 9.8 mg/dL (8.5-10.1); CHLORIDE 107 mmol/L (98-107); CO2 35 mmol/L (21-32); CREATININE 0.9 mg/dL (0.6-1.3); GLUCOSE 113 mg/dL (70-99); MAGNESIUM 1.7 mg/dL (1.8-2.4); POTASSIUM 3.5 mmol/L (3.5-5.1); SODIUM 144 mmol/L (136-145); TROPONIN-I LEVEL <0.06 ng/mL (<0.06)
[2020-12-30 06:10] VITALS: BP 193/71
[2020-12-30 08:20] VITALS: BP 159/73
[2020-12-30] MEDS ORDERED: HYDRALAZINE 2525 MG PO (10:13)
[2020-12-30] MEDS ORDERED: CARVEDILOL12.5 MG PO (10:13)
[2020-12-30] MEDS ORDERED: MICARDIS40 MG PO (10:13)
[2020-12-30] MEDS ORDERED: NORVASC5 MG PO (10:13)
[2020-12-30] MEDS ORDERED: SPIRONOLACTONE25 MG PO (10:13)
[2020-12-30 11:33] VITALS: BP 147/50
[2020-12-30 14:00] VITALS: BP 113/47
--- NOTE | 2020-12-30 14:17 | CON ---
[address] [address] CONSULTATION Name: WALI SOLORZANO Room: [address] M.R.#: [id number] Admission: 12/29/20 Attend Phys: Lazarus Laird MD Discharge: Date of : 39 Report #: [id number] THIS REPORT FOR: cc: Myla Estrella Linda J. DO David Brizuela MD [facility] DATE OF SERVICE: 12/30/2020 CARDIOLOGY CONSULTATION HISTORY OF PRESENT ILLNESS: The patient is an 85-year-old single white female who I was asked to see in the hospital today because of elevated blood pressure. The patient has a long history of high blood pressure. She has been on multiple medications in the past. She apparently has had cardiac workup in the past including a stress test. She was seen both by Dr. Oden and myself in the past. She has no history of coronary artery disease. She stays very active, including going to the gym. She apparently had COVID-19 in October when she tested positive and lost her sense of smell. She then recovered and has had a vaccine since that time. She was doing well until yesterday, she took her blood pressure at home that was very elevated. She drove herself to the Emergency Room and was admitted. She has had a headache. She denies a history of sweating spells, diabetes, heart murmur, noncompliance. She denies dietary indiscretion. She does have occasional sharp chest pain, although it is nonexertional. She does occasionally become short of breath with exertion. She has COPD. She has chronic edema. Notes occasional skipped heartbeat, but no syncope. PAST MEDICAL HISTORY: She has had cholecystectomy, hysterectomy, hyperlipidemia. MEDICATIONS: On admission consisted of albuterol inhaler for COPD, Xanax as needed, amlodipine 5 mg twice a day, aspirin a day, Symbicort inhaler, carvedilol 12.5 mg twice a day, clonidine 0.3 mg 3 times a day, hydralazine 50 mg 3 times a day, HCTZ 12.5 mg a day, omeprazole, spironolactone 25 mg a day. ALLERGIES: SHE HAS A PREVIOUS INTOLERANCE TO MAMADOU INHIBITORS, WHICH MADE HER COUGH. FAMILY HISTORY: Her brother had bypass surgery. SOCIAL HISTORY: She is , lives in [place]. Quit smoking in 1974. No alcohol abuse. REVIEW OF SYSTEMS: She has had no history of stroke, liver disease, [place] [address] CONSULTATION Name: WALI SOLORZANO Room: [address] MChristieR.#: [id number] Admission: 12/29/20 Attend Phys: Lazarus Laird MD Discharge: Date of : 39 Report #: [id number] removed in the past. She has a history of psoriasis. No psychiatric illness. PHYSICAL EXAMINATION: GENERAL: Revealed an elderly female, lying in bed, appeared in no distress. VITAL SIGNS: When she arrived in the Emergency Room yesterday, her blood pressure was 195/90. Currently, her blood pressure is 160/70, pulse 70. She is afebrile. HEENT: She was anicteric. Conjunctivae pink. Mucous membranes moist. NECK: Veins nondistended. No carotid bruits. CHEST: Distant breath sounds. Late expiratory phase of respiration. CARDIOVASCULAR: Regular rate and rhythm. No significant murmur. ABDOMEN: Soft. No abdominal bruits are noted. EXTREMITIES: Had no edema. Dorsalis pedis pulse cannot be palpated. SKIN: Cool and dry. NEUROLOGIC: Nonfocal. LYMPH: No adenopathy. RADIOLOGICAL DATA: On the monitor, the patient is in a sinus rhythm with occasional PVCs. Her workup, she had an echocardiogram performed yesterday that showed normal ejection fraction, aortic sclerosis. There was evidence of mild aortic stenosis with a peak gradient across the aortic valve of 22 mmHg. X-rays, she had a portable chest x-ray performed 2 days ago that showed normal heart size, calcification of the aortic arch, chronic scarring. She had a carotid Doppler study performed in 2018 here at [place] that showed no significant stenosis. She had Doppler performed of her lower extremities back in 2018 that showed evidence of PAD suggesting iliac disease. There was abnormal HEATHER bilateral. LABORATORY DATA: Sodium 144, potassium 3.5, creatinine 0.9. Liver function studies were normal. TSH 2.0. Her white blood cell count 8.8, hemoglobin 13.5. Her COVID antigen stat test was negative. Urinalysis was negative for protein. IMPRESSION AND RECOMMENDATIONS: 1. Essential hypertension. I find no evidence of secondary causes. The patient has been on a calcium marie, beta marie, clonidine, hydralazine, and spironolactone. At this time, I would recommend increase the dose of her beta marie. I would consider adding an ARB. 2. Chronic obstructive pulmonary disease. 3. Peripheral artery disease. If symptomatic, [place] [address] CONSULTATION Name: WALI SOLORZANO Room: [address] [place] BluntChristieAntwonChristie#: [id number] Admission: 12/29/20 Attend Phys: Lazarus Laird MD Discharge: Date of : 37 Report #: [id number] 4. Previous tobacco abuse. Fortunately, the patient quit smoking years ago. 5. History of psoriasis. <ELECTRONICALLY SIGNED> By: David Brizuela MD, FACC 12/30/20 1417 1053 [id number] Angie Brizuela MD, FACC /nt
[2020-12-30 20:00] VITALS: BP 163/67
[2020-12-31] VITALS (7 sets, daily range): BP systolic 91–175; BP diastolic 41–68
[2020-12-31 05:12] LABS: CHOLESTEROL 178 mg/dL (<200); HDL CHOLESTEROL 50 mg/dL (>40); LDL CHOLESTEROL 101 mg/dL (<100); SERUM ASSESSMENT CLEAR; TC:HDL 3.6 Ratio (Not establshd); TRIGLYCERIDE 137 mg/dL (<150); VLDL 27 mg/dL (<40)
[2021-01-01] VITALS (7 sets, daily range): BP systolic 128–158; BP diastolic 43–51
[2021-01-01] MEDS ORDERED: HYDROCHLOROTHIA25 M1 PO (09:44)
== END 2021-01-01 15:50 | disposition home health service (06) | DRG 305 ==
LOC: M.ERS 22:44 → M.2W 12-29 00:51 → M.TBA-ER 12-29 00:51 → M.2W 12-29 08:00
PROVIDERS: Emergency Medicine; Internal Medicine; Internal Medicine Cardiovascular Disease; ADMIT Internal Medicine; ATTEND Internal Medicine
DX: I16.1 Hypertensive emergency (principal); J96.10 Chronic respiratory failure, unspecified whether with hypoxia or hypercapnia; I16.0 Hypertensive urgency; I10 Essential (primary) hypertension; J44.9 Chronic obstructive pulmonary disease, unspecified; I73.9 Peripheral vascular disease, unspecified; E78.5 Hyperlipidemia, unspecified; I70.1 Atherosclerosis of renal artery; I35.0 Nonrheumatic aortic (valve) stenosis; Z20.822 Contact with and (suspected) exposure to COVID-19; Z86.16 Personal history of COVID-19; Z90.710 Acquired absence of both cervix and uterus; Z79.82 Long term (current) use of aspirin; Z79.899 Other long term (current) drug therapy; Z90.49 Acquired absence of other specified parts of digestive tract; Z88.2 Allergy status to sulfonamides; Z88.8 Allergy status to other drugs, medicaments and biological substances; Z87.891 Personal history of nicotine dependence

== ENCOUNTER → 2021-01-08 | Outpatient (CLI) | payer OTHER ==
[~2021-01-08] VITALS: Ht 160 cm; Wt 68.1 kg
[2021-01-08] VITALS (7 sets, daily range): BP systolic 111–153; BP diastolic 46–61
[~2021-01-08] MED LIST changes: +CARVEDILOL12.5 MG PO; +HYDRALAZINE 2525 MG PO; +HYDROCHLOROTHIA25 M1 PO; +NORVASC5 MG PO; +SPIRONOLACTONE25 MG PO
[2021-01-08 09:39] LABS: HEMATOCRIT 36.9 % (37.0-47.0); HEMOGLOBIN 12.4 gm/dL (12.0-15.0); MCH 29.4 pg (26.0-34.0); MCHC 33.6 g/dL (28.0-37.0); MCV 87.3 fL (80.0-100.0); MPV 9.3 fl. (7.2-11.1); RBC 4.22 mil/uL (4.20-5.00); WBC 9.3 thou/uL (4.0-11.0)
[2021-01-08 09:55] LABS: CALCIUM 10.5 mg/dL (8.5-10.1)
[2021-01-08 10:00] LABS: ALBUMIN 3.1 g/dL (3.4-5.0); TOTAL BILIRUBIN 0.4 mg/dL (<0.1-1.0)
[2021-01-08 10:16] LABS: APTT 22.5 Seconds (25.0-31.3); PROTIME 10.3 Seconds (9.20-11.50)
--- NOTE | 2021-01-08 16:19 | NUR ---
PATIENT BLOOD PRESSURE IS WITHIN NORMAL RANGE AFTER PROCEDURE. SO, CHARGE NURSE SCOTTY CALLED TO MAKE CHANGE IN HER BLOOD PRESSURE MEDICINES. FOLLOWING CHANGES WERE MADE ( VERBAL ORDER VIA TELEPHONE): TAB HYDRALAZINE 50 MG WAS STOPPED/DC AND TAB NORVASC 5 MG BID WAS CHANGED TO DAILY. CHANGES HAPPENED AT 1615
== END | disposition home or self-care (01) ==
LOC: M.INT 08:50
PROVIDERS: ATTEND Radiology Diagnostic Radiology
DX: I70.1 Atherosclerosis of renal artery (principal); I15.0 Renovascular hypertension; I10 Essential (primary) hypertension; J44.9 Chronic obstructive pulmonary disease, unspecified; I73.9 Peripheral vascular disease, unspecified; Z98.890 Other specified postprocedural states; Z79.899 Other long term (current) drug therapy; Z90.710 Acquired absence of both cervix and uterus; Z87.891 Personal history of nicotine dependence; Z88.2 Allergy status to sulfonamides; Z88.8 Allergy status to other drugs, medicaments and biological substances

== ENCOUNTER 2021-03-08 10:19 | Inpatient (IN) | payer OTHER ==
[~2021-03-08] VITALS: Ht 160 cm; Wt 68.6 kg
[2021-03-08 10:31] VITALS: BP 177/60
[2021-03-08 10:57] LABS: HEMATOCRIT 46.5 % (37.0-47.0); HEMOGLOBIN 15.4 gm/dL (12.0-15.0); MCHC 33.2 g/dL (28.0-37.0); MCV 90.5 fL (80.0-100.0); MPV 8.8 fl. (7.2-11.1); NUCLEATED RBCS 0 /100WBC; PLATELET COUNT* 177 thou/uL (150-400); RBC 5.14 mil/uL (4.20-5.00); RDW-CV 14.4 % (10.5-14.5); WBC 13.6 thou/uL (4.0-11.0)
[2021-03-08 11:01] LABS: CALCIUM 9.9 mg/dL (8.5-10.1); CREATININE 0.8 mg/dL (0.6-1.3); POTASSIUM 3.5 mmol/L (3.5-5.1)
[2021-03-08 11:04] LABS: APTT 21.7 Seconds (25.0-31.3); PROTIME 10.5 Seconds (9.20-11.50)
[2021-03-08 11:12] LABS: ALBUMIN 3.7 g/dL (3.4-5.0); TOTAL BILIRUBIN 0.8 mg/dL (<0.1-1.0); TOTAL PROTEIN 7.1 g/dL (6.4-8.2)
[2021-03-08 11:29] LABS: ABSOLUTE BASOPHILS 0.1 thou/uL (0.0-0.2); ABSOLUTE LYMPHOCYTES 1.2 thou/uL (0.8-5.3); ABSOLUTE MONOCYTES 0.3 thou/uL (0.0-1.2); PLATELET ESTIMATE ADEQUATE
[2021-03-08 12:02] LABS: BE 10.7 mmol/L (-2 to +3); PO2 84.1 mmHg (75.0-100.0); pH 7.372 (7.340-7.450)
--- NOTE | 2021-03-08 15:32 | EKG ---
[place] [address] ELECTROCARDIOGRAM REPORT Name: SHAMA SOLORZANODYRubi VELARDE Room: [place] [address] ADM IN [facility]#: [id number] Admission: 03/08/21 Attend Phys: Lazarus Laird, Discharge: Date of : 39 Date of Service: 03/08/21 [facility] Report #: [id number] THIS REPORT FOR: //name// [facility] ED Test Date: 2021-03-08 Test Time: 10:38:52 Pat Name: WALI SOLORZANO Department: Room: [facility] Gender: F [place] Rewinder: EMMETT : 1935 Requested By: Donaldo Foster Order Number: [id number] MD: Randy Lyons Measurements Intervals [place] Rate: 74 P: 13 [place]: 195 QRS: -20 QRSD: 89 T: 46 QT: 341 QTc: 379 Interpretive Statements Sinus rhythm Ventricular premature complex Borderline left axis deviation Compared to ECG 12/28/2020 18:46:01 Ventricular premature complex(es) now present Left anterior fascicular block no longer present Electronically Signed On 03-08-2021 15:32:01 CDT by Randy Lyons [email or web address] <ELECTRONICALLY SIGNED> By: Randy Lyons MD, FACC 03/08/21 1532 1038 1038 Randy Lyons MD, FAC /EPI
[2021-03-08] MEDS ORDERED: NORVASC5 MG PO (16:06)
[2021-03-08] MEDS ORDERED: ASA81BEC PO (16:06)
[2021-03-08] MEDS ORDERED: LIPITOR 20 MG T20 M1 PO (16:06)
[2021-03-08] MEDS ORDERED: XANAX 0.25 MG0.25 MG PO (16:06)
[2021-03-08] MEDS ORDERED: CARVEDILOL12.5 MG PO (16:07)
[2021-03-08] MEDS ORDERED: HYDROCHLOROTHIA25 M1 PO (16:07)
[2021-03-08] MEDS ORDERED: SYMBICORT160 MCG/4. INH (16:07)
[2021-03-08] MEDS ORDERED: PLAVIX 75 MG TA75 MG PO (16:07)
[2021-03-08 17:20] VITALS: BP 138/91
[2021-03-08 18:57] VITALS: BP 159/56
[2021-03-08 19:45] VITALS: BP 162/54
--- NOTE | 2021-03-08 21:16 | NUR ---
PT ARRIVED TO ROOM RIGHT BEFORE SHIFT CHANGE. NURSING ASSESSMENT COMPLETED AND MEDS VERIFIED. PT REPORTS INCREASED SOA THE LAST 3 DAYS. NO ACUTE RESP DISTRESS REPORTED OR OBSERVED AT THIS TIME. DR RODRIGUES CONSULT CALLED. DR CARTER PAGED FOR HOME/ANXIETY MEDS AND BREATHING TREATMENTS.
[2021-03-09 00:39] VITALS: BP 152/54
[2021-03-09 04:39] LABS: CALCIUM 9.6 mg/dL (8.5-10.1); CREATININE 0.7 mg/dL (0.6-1.3); POTASSIUM 3.4 mmol/L (3.5-5.1)
[2021-03-09 04:43] LABS: ABSOLUTE LYMPHOCYTES 0.7 thou/uL (0.8-5.3); ABSOLUTE MONOCYTES 0.5 thou/uL (0.0-1.2); ABSOLUTE NEUTROPHILS 10.2 thou/uL (1.6-8.1); BASOPHILS 0.1 %; HEMATOCRIT 42.3 % (37.0-47.0); HEMOGLOBIN 14.2 gm/dL (12.0-15.0); LYMPHOCYTES 6.2 %; MCHC 33.6 g/dL (28.0-37.0); MCV 89.1 fL (80.0-100.0); NUCLEATED RBCS 0 /100WBC; PLATELET COUNT* 154 thou/uL (150-400); POLYS 89.7 %; RBC 4.75 mil/uL (4.20-5.00); WBC 11.4 thou/uL (4.0-11.0)
[2021-03-09 04:46] VITALS: BP 114/54
[2021-03-09 08:13] VITALS: BP 166/44
[2021-03-09 12:02] VITALS: BP 151/57
--- NOTE | 2021-03-09 15:21 | NUR ---
PT LIVES HOME ALONE, PT HAS O2 AT HOME THRU [facility], 2L "MOSTLY AT NIGHT...SOMETIMES USES DURING THE DAY." DRIVES A VEHICLE. INDEPENDENT W/ADLS. USES A "CLEANING LADY" 1X/BIWEEKLY. HAS A HX WITH HH. CM TO CONT TO FOLLOW.
[2021-03-09 17:02] VITALS: BP 150/54
--- NOTE | 2021-03-09 18:00 | NUR ---
Pt c/o mild headache early this afternoon; partially relieved with dose of acetaminophen (see MAR). VSS. Remains on 2L O2. Reports she rested well overnight on BIPAP. Will continue to monitor.
[2021-03-09 20:00] VITALS: BP 142/47
[2021-03-10 00:14] VITALS: BP 167/64
--- NOTE | 2021-03-10 03:27 | NUR ---
ALERT ORIENTED. UP TO BR STAND BY ASSIST. PLASTIC PARTS FABRICATOR TRIMMER TRACING SR. XANAX GIVEN HS. O2 AT 2 LITERS NC.
[2021-03-10 04:49] LABS: HEMATOCRIT 41.3 % (37.0-47.0); HEMOGLOBIN 13.8 gm/dL (12.0-15.0); MCH 29.8 pg (26.0-34.0); MCHC 33.3 g/dL (28.0-37.0); MCV 89.5 fL (80.0-100.0); MPV 9.1 fl. (7.2-11.1); RBC 4.62 mil/uL (4.20-5.00); WBC 11.1 thou/uL (4.0-11.0)
[2021-03-10 04:52] LABS: ALBUMIN 2.8 g/dL (3.4-5.0); CALCIUM 9.2 mg/dL (8.5-10.1); CREATININE 0.8 mg/dL (0.6-1.3); MAGNESIUM 1.8 mg/dL (1.8-2.4); TOTAL BILIRUBIN 0.5 mg/dL (<0.1-1.0); TOTAL PROTEIN 5.9 g/dL (6.4-8.2)
[2021-03-10 04:54] VITALS: BP 162/64
[2021-03-10 08:00] VITALS: BP 176/70
--- NOTE | 2021-03-10 09:47 | NUR ---
ASSUMED CARE OF PT AT 0730. PT SITTING AT EDGE OF BED WAITING FOR BREAKFAST. A&0X4, DENIES ANY PAIN OR SHORTNESS OF BREATH AT THIS TIME. TRACING SR ON THE TECHNICAL WRITING LEAD/MGR. ON 2L NC SAT MID 90'S. PT UP WITH SBA TO BATHROOM. PT GOAL FOR TODAY IS IV STEROIDS, WORK WITH PT AND OT AND INCREASE ACTIVITY. AM ASSESSMENT CHARTED. MEDICATIONS PER MAR. PT REPOSITIONS SELF. HOURLY ROUNDING OBSERVED. BED IN LOW POSITION. CALL LIGHT WITHIN REACH. WILL CONTINUE PLAN OF CARE.
[2021-03-10 14:05] VITALS: BP 142/72
--- NOTE | 2021-03-10 14:54 | NUR ---
PLAN OF CARE: PT REMAIN TELE STATUS. PT REMAINS ON 2L O2, AND WAS ON 2L O2 AT HOME PRIOR TO ADMIT. PLAN FOR PT TO POSSIBLY D/C HOME ON MONDAY. NO CM D/C PLANNING NEEDS ANTICIPATED. CM WILL REMAIN AVAILABLE TO ASSIST AND FOLLOW NEEDED.
[2021-03-10 17:24] VITALS: BP 156/58
[2021-03-11 00:57] VITALS: BP 161/62
[2021-03-11 04:19] LABS: HEMATOCRIT 43.3 % (37.0-47.0); HEMOGLOBIN 14.5 gm/dL (12.0-15.0); MCH 30.2 pg (26.0-34.0); MCHC 33.5 g/dL (28.0-37.0); MCV 90.1 fL (80.0-100.0); MPV 9.3 fl. (7.2-11.1); RBC 4.81 mil/uL (4.20-5.00); RDW-CV 14.3 % (10.5-14.5); WBC 13.8 thou/uL (4.0-11.0)
[2021-03-11 04:40] LABS: ALBUMIN 2.8 g/dL (3.4-5.0); CALCIUM 9.4 mg/dL (8.5-10.1); CREATININE 0.8 mg/dL (0.6-1.3); MAGNESIUM 1.8 mg/dL (1.8-2.4); POTASSIUM 3.7 mmol/L (3.5-5.1); TOTAL BILIRUBIN 0.4 mg/dL (<0.1-1.0); TOTAL PROTEIN 6.1 g/dL (6.4-8.2)
[2021-03-11 04:41] VITALS: BP 155/64
[2021-03-11 08:00] VITALS: BP 157/62
[2021-03-11 11:10] VITALS: BP 160/58
--- NOTE | 2021-03-11 13:37 | NUR ---
PLAN OF CARE: PT REMAINS TELE STATUS. PULM CONSULTED AND NOW RECOMMENDAING THAT PT HAVE TRILOGY AT D/C. CM FAXED PT'S CLINICAL INFO TO [facility]. PULM WILL NEED TO SIGN TRILOGY ORDER WHEN RECIEVED. PT MAY ALSO BENEFIT FROM HH AT D/C. CM WILL REMAIN AVAILABLE TO ASSIST AND FOLLOW NEEDED.
[2021-03-11 16:51] VITALS: BP 166/70
[2021-03-11 20:00] VITALS: BP 168/66
[2021-03-12 00:35] VITALS: BP 171/77
[2021-03-12 04:30] VITALS: BP 153/90
[2021-03-12 08:00] VITALS: BP 113/48; BP 172/61
[2021-03-12] MEDS ORDERED: NORVASC5 MG PO (12:06)
[2021-03-12] MEDS ORDERED: DOXYCYCLINE 10100 MG PO (12:08)
[2021-03-12] MEDS ORDERED: PREDNISONE 10 M10 MG PO (12:08)
[2021-03-12 12:14] VITALS: BP 172/61
[2021-03-12 13:32] VITALS: BP 172/61
--- NOTE | 2021-03-12 14:21 | NUR ---
DISCHARGE INSTRUCTIONS GIVEN AND EDUCATION PROVIDED. PT VERBALIZED UNDERSTANDING OF DISCHARGE INSTRUCTONS. ALL BELONGINGS PACKED AND SENT WITH PT. PT ESCORTED TO CAR VIA WHEELCHAIR BY HEALTH CARE CONSULTANT.
--- NOTE | 2021-03-12 16:08 | NUR ---
PLAN FOR THE PT TO D/C HOME TODAY WITH HH AND TRILOGY. TRILOGY ARRANGED WITH [facility] AND WILL DELIVER IT TO THE PT. CM FAXED PT'S CLINICAL INFO TO [facility]. [facility] WILL CONTACT THE PT TO ARRANGE A TIME TO VISIT. CM WILL REMAIN AVAILABLE TO ASSIST AND FOLLOW NEEDED. [facility] PHONE: [phone] FAX: [phone]
--- NOTE | 2021-03-15 15:08 | CON ---
[address] [address] CONSULTATION Name: WALI SOLORZANO Room: [address] IN M.R.#: [id number] Admission: 03/08/21 Attend Phys: Lazarus Laird MD Discharge: 03/12/21 Date of : 39 Report #: [id number] THIS REPORT FOR: cc: Myla Estrella Linda J. DO Pervez, Adeel MD ~ DOC #: [id number] Cameron Watts MD DATE OF CONSULTATION: 03/09/2021 CONSULTATION REQUESTED BY: Lazarus Laird MD INDICATION FOR CONSULTATION: Acute on chronic hypercarbic respiratory failure. HISTORY OF PRESENT ILLNESS: The patient is an 85-year-old female with past medical history as mentioned below. This does include a history of COPD. The patient is on 2 liters oxygen while asleep. The patient has also had uncontrolled/malignant hypertension and was diagnosed with renal artery stenosis and only recently had stenting performed. The patient is now admitted with increasing shortness of breath. Her blood pressure was also elevated on admission and she complained of increasing weakness. Note that the patient usually only requires oxygen while asleep. Initially, the patient did require around 2 liters of oxygen to maintain O2 saturation in the low 90s. Upon admission, she does have a cough, there is not much sputum. There is no chest pain. She had a blocked nose as well as runny nose at times. This is not different from her baseline. She is not complaining of a sore throat. She has not had fever or chills. She has had some daytime sleepiness as well as sleep disturbances, which are at baseline. REVIEW OF SYSTEMS: The patient's review of systems for 12 points is negative except as mentioned above. PAST MEDICAL HISTORY: COPD, on oxygen 2 liters while asleep. There are old pulmonary function tests available, which show an FEV1 of only 800 mL, hypertension, renal artery stenosis, recent stenting, hypertension has been uncontrolled, there is a recent echo which shows a left ventricular ejection fraction of 70% with a pulmonary artery systolic of 22, hysterectomy in 1980, peripheral artery disease. SOCIAL HISTORY: There is an extensive history of smoking in the past. The patient has now discontinued several years ago, unable to quantify exactly. No known history of heavy alcohol use or illegal drug use. MEDICATIONS: List in [facility] reviewed. Home medication list in [facility] also reviewed. Note that she is on Symbicort as well [place] [address] CONSULTATION Name: WALI SOLORZANO Room: [address]#: [id number] Admission: 03/08/21 Attend Phys: Lazarus Laird MD Discharge: 03/12/21 Date of : 39 Report #: [id number] Aldactone at home in addition to other medications. ALLERGIES: SULFONAMIDE ANTIBIOTICS. She has had coughing with MAMADOU inhibitors, she was also reported to have had an adverse reaction, I do not have details available to ARBs. Note that she did have renal artery stenosis. FAMILY HISTORY: No pertinent family history known at this time. PHYSICAL EXAMINATION: GENERAL: She is alert, awake and oriented, does not appear to be in any distress at this time. VITAL SIGNS: She has a pulse of 71, blood pressure of 151/57, respiratory rate is 16-17. She is afebrile with a temperature of 37.1. Body mass index is 25.2. HEENT: Normocephalic and atraumatic. Pupils are equal and reactive. There is no throat erythema or narrow airway. NECK: Does not show raised JVP, asymmetry, mass or lymph nodes. CHEST: Symmetrical expansion on inspection and palpation. On auscultation, breath sounds are bilaterally equal, but decreased. I do not hear any added sound. Expirations are prolonged. HEART: Regular. There is no murmur. ABDOMEN: Soft and nontender. LOWER EXTREMITIES: Show no edema, no calf tenderness. SKIN: Dry and intact. NEUROLOGIC: Moves all extremities bilaterally spontaneously with no focal deficit identified. LABORATORY DATA: The patient's chest x-ray is reviewed, shows some mild hyperinflation consistent with COPD. There are no additional findings. The patient's lab work, which does include an ABG which is abnormal in [facility] reviewed. The patient's CBC as well as chemistry is also in [facility] reviewed. Coagulation studies in [facility] reviewed. COVID-19 antigen was negative. ASSESSMENT AND PLAN: 1. Acute on chronic hypercarbic and hypoxemic respiratory failure, noninvasive mechanical ventilator while asleep is required to reduce the patient's readmission risk as well as to delay her eventual . Therefore, I recommend average volume assured pressure support while asleep, usp. We will go ahead and put her on AVAPS using one of our machines. At this time, she was on BiPAP last night as well. We will arrange Trilogy for her before discharge, so that she is also on 2 liters of oxygen while asleep, continuous churn buttermaker. 2. Chronic obstructive pulmonary disease exacerbation. I agree with current therapy with nebulized bronchodilators as well as Solu-Medrol and budesonide. We will go ahead and add Singulair. Note that she appears to have significant COPD, which may require further workup. I recommend that she sees a [facility] [address] [place] [address] CONSULTATION Name: WALI SOLORZANO Room: [address] IN [facility].#: [id number] Admission: 03/08/21 Attend Phys: Lazarus Laird MD Discharge: 03/12/21 Date of : 39 Report #: [id number] compounder flavorings if she is interested in seeing neither, I will be happy to see her in the office after discharge. No large infiltrates on chest x-ray; however, I agree with empirically covering with doxycycline. 3. Respiratory acidosis as well as metabolic alkalosis. This is indicated on the arterial blood gas that respiratory acidosis is secondary to chronic hypercarbic respiratory failure, but there is also a significant component of metabolic alkalosis secondary to hypokalemia. I recommend replacing potassium to reach 4.0. Note that she is on hydrochlorothiazide as well as Aldactone at home, long-term. I would recommend maintaining potassium 4.0 or higher long-term and therefore, either need an increase in Aldactone dose or adding potassium long-term. 4. Uncontrolled hypertension/renal artery stenosis, status post recent stenting. Blood pressure still is on the higher side. I would defer a followup with the primary service. Evaluation for thromboembolic phenomena, my suspicion is low. There is only mild elevation in D-dimer to 0.69. I ordered venous Dopplers. We decided for now to hold off on CTA chest. 5. Deep venous thrombosis prophylaxis, Lovenox. Note that she also is on Plavix. 6. Clostridium difficile prophylaxis. We will order Florastor. 7. GI prophylaxis, she is on Protonix. Thanks for this consultation. MD CASSANDRA Prajapati/SHERLYN <ELECTRONICALLY SIGNED> By: Cameron Watts MD 03/15/21 1508 1336 [id number] Watts MD /nt
== END 2021-03-12 13:50 | disposition home health service (06) | DRG 189 ==
LOC: M.ERS 10:19 → M.TBA-ER 12:15 → M.2W 12:15
PROVIDERS: Emergency Medicine Emergency Medical Services; Internal Medicine; ADMIT Internal Medicine; ATTEND Internal Medicine
PROC: 5A09357 Assistance with Respiratory Ventilation, Less than 24 Consecutive Hours, Continuous Positive Airway Pressure (ICD-10-PCS; principal; 2021-03-08)
PROC: 5A09357 Assistance with Respiratory Ventilation, Less than 24 Consecutive Hours, Continuous Positive Airway Pressure (ICD-10-PCS; 2021-03-09)
PROC: 5A09357 Assistance with Respiratory Ventilation, Less than 24 Consecutive Hours, Continuous Positive Airway Pressure (ICD-10-PCS; 2021-03-10)
PROC: 5A09357 Assistance with Respiratory Ventilation, Less than 24 Consecutive Hours, Continuous Positive Airway Pressure (ICD-10-PCS; 2021-03-11)
DX: J96.21 Acute and chronic respiratory failure with hypoxia (principal); R65.11 Systemic inflammatory response syndrome (SIRS) of non-infectious origin with acute organ dysfunction; J44.1 Chronic obstructive pulmonary disease with (acute) exacerbation; E87.2 Acidosis; J96.22 Acute and chronic respiratory failure with hypercapnia; I10 Essential (primary) hypertension; I73.9 Peripheral vascular disease, unspecified; E87.6 Hypokalemia; I16.0 Hypertensive urgency; Z20.822 Contact with and (suspected) exposure to COVID-19; Z79.82 Long term (current) use of aspirin; Z90.710 Acquired absence of both cervix and uterus; Z79.899 Other long term (current) drug therapy; Z88.2 Allergy status to sulfonamides; Z88.8 Allergy status to other drugs, medicaments and biological substances; Z87.891 Personal history of nicotine dependence

== ENCOUNTER → 2021-04-07 | Outpatient (CLI) | payer OTHER ==
[~2021-04-07] MED LIST changes: +ASA81BEC PO; +DOXYCYCLINE 10100 MG PO; +LIPITOR 20 MG T20 M1 PO; +PLAVIX 75 MG TA75 MG PO; +PREDNISONE 10 M10 MG PO
[2021-04-07 17:02] LABS: CREATININE 0.8 mg/dL (0.6-1.3)
== END ==
LOC: M.LAB 16:17
PROVIDERS: ATTEND Internal Medicine Critical Care Medicine
DX: S29.9XXA Unspecified injury of thorax, initial encounter (principal); R06.02 Shortness of breath; X58.XXXA Exposure to other specified factors, initial encounter; Y92.89 Other specified places as the place of occurrence of the external cause; Y93.89 Activity, other specified; Y99.8 Other external cause status

== ENCOUNTER → 2021-04-12 | Outpatient (CLI) | payer OTHER | LOC: M.CT 13:09 | PROVIDERS: ATTEND Internal Medicine Critical Care Medicine | DX: K44.9 Diaphragmatic hernia without obstruction or gangrene (principal); R07.9 Chest pain, unspecified; R06.02 Shortness of breath; R79.89 Other specified abnormal findings of blood chemistry; J43.2 Centrilobular emphysema ==

== ENCOUNTER → 2021-08-31 | Outpatient (CLI) | payer OTHER ==
--- NOTE | 2021-09-03 07:40 | PF ---
[address] [address] PULMONARY FUNCTION REPORT Name: WALI SOLORZANO Room: [facility].#: [id number] Admission: 08/31/21 Attend Phys: Cameron Watts MD Discharge: Date of : 39 Report #: [id number] THIS REPORT FOR: cc: Myla Estrella Linda J. DO Pervez, Adeel MD ~ DATE OF VISIT: 08/31/2021 INTERPRETATION: The FEV1/FVC ratio is markedly decreased to only 37% with an FVC mildly decreased to 79%, but the FEV1 is decreased to 40%. The FEF 25-75 is decreased to 8% only. After the administration of a bronchodilator, there is a 15% increase in forced vital capacity and this does exceed 200 mL and therefore is consistent with criteria for reversibility. There is also a 10% increase in FEV1; however, this is below criteria for reversibility. The patient's post-bronchodilator FEV1 is 0.75 liters only. The total lung capacity is normal at 102% with the residual volume increased to 135%. The DLCO as adjusted for hemoglobin is decreased to 48%. The flow volume loop is concave upwards. IMPRESSION: 1. Severe obstruction with evidence of reversibility. 2. Hyperinflation secondary to underlying obstruction. 3. DLCO as adjusted for hemoglobin decreased to 48%. <ELECTRONICALLY SIGNED> By: Cameron Watts MD 09/03/21 0740 2019 [id number] ryan Prajapati
== END ==
LOC: M.PUL 09:46
PROVIDERS: ATTEND Internal Medicine Critical Care Medicine
DX: J44.9 Chronic obstructive pulmonary disease, unspecified (principal)

== ENCOUNTER → 2021-10-15 | Outpatient (CLI) | payer OTHER ==
[~2021-10-15] VITALS: Ht 160 cm; Wt 65.8 kg
[~2021-10-15] MED LIST changes: +ALLEGRA ALLERG180 MG PO; +OMEPRAZOLE 20 M20 M1 PO
[2021-10-15 15:18] VITALS: BP 136/58
== END ==
LOC: M.INT 14:54
PROVIDERS: ATTEND Family Medicine
DX: S32.058D Other fracture of fifth lumbar vertebra, subsequent encounter for fracture with routine healing (principal); S32.038D Other fracture of third lumbar vertebra, subsequent encounter for fracture with routine healing; I10 Essential (primary) hypertension; J44.9 Chronic obstructive pulmonary disease, unspecified; Z99.81 Dependence on supplemental oxygen; X58.XXXD Exposure to other specified factors, subsequent encounter

== ENCOUNTER → 2021-10-21 | Outpatient (CLI) | payer OTHER ==
[~2021-10-21] VITALS: Ht 160 cm; Wt 67.1 kg
[2021-10-21 08:27] VITALS: BP 143/68; BP 147/64
[2021-10-21 08:48] LABS: INR 1.1; PROTIME 10.9 Seconds (9.20-11.50)
[2021-10-21 10:15] VITALS: BP 153/63
[2021-10-21 10:30] VITALS: BP 161/80
[2021-10-21 10:45] VITALS: BP 145/55
== END | disposition home or self-care (01) ==
LOC: M.INT 05:55
PROVIDERS: ATTEND Radiology Diagnostic Radiology
DX: M80.08XA Age-related osteoporosis with current pathological fracture, vertebra(e), initial encounter for fracture (principal); M54.9 Dorsalgia, unspecified; I10 Essential (primary) hypertension; E78.5 Hyperlipidemia, unspecified; I73.9 Peripheral vascular disease, unspecified; K21.9 Gastro-esophageal reflux disease without esophagitis; J44.9 Chronic obstructive pulmonary disease, unspecified; Z98.890 Other specified postprocedural states; Z79.899 Other long term (current) drug therapy; Z88.2 Allergy status to sulfonamides; Z88.8 Allergy status to other drugs, medicaments and biological substances